=== PATIENT | female | born 1925 | race Caucasian/White ===

== ENCOUNTER 2017-02-15 02:29 | Emergency (ER) | payer MEDICARE, OTHER ==
[~2017-02-15] VITALS: Ht 147.3 cm; Wt 66.0 kg
[~2017-02-15 02:29] MED LIST: ACET50TAOT PO; ADV250INH INH; ALBU17IN INH; BUME1TA PO; CO Q100C PO; DILT120C PO; DRIS50002 PO; ELIQ2.5T PO; ELIQ5TAB PO; FOLI1TAB4 PO; KLOR1TAB77 PO; LIDO5TD TD; MAGN500T2 PO; MAGN64TASA PO; METO1TAB32 PO; METO25TAB PO; NATU400T PO; PERCOCET PO; POTA20TA PO; PRAV40TA2 PO; PRIL40CA PO; PROP225T PO; REST0.05 OU; SALI0.6523; SYMB16INH INH; VITMTA PO; [UNRECOGNIZED DRUG - CODE] OU; [UNRECOGNIZED DRUG - CODE] PO
[2017-02-15 06:48] LABS: BASO % 0.8 % (0.0-1.0); EOS # 0.2 K/mm3 (0.0-0.50); EOS % 3.8 % (0.0-3.0); LARGE UNSTAINED CELL # 0.2 K/mm3 (0.0-0.4); LARGE UNSTAINED CELL % 2.6 % (0.0-4.0); LYMPH # 2.2 K/mm3 (1.5-4.5); LYMPH % 32.1 % (24.0-44.0); MEAN CORPUSCULAR HGB CONC 33.2 g/dl (32.0-36.5); MEAN CORPUSCULAR VOLUME 99.3 fl (80.0-96.0); MONO # 0.5 K/mm3 (0.0-0.8); MONO % 7.8 % (0.0-5.0); NEUTROPHILS # 3.4 K/mm3 (1.8-7.7); NEUTROPHILS % 52.9 % (36.0-66.0); PLATELET COUNT, AUTOMATED 199 k/mm3 (150-450); RED CELL DISTRIBUTION WIDTH 12.8 % (11.5-14.5); WHITE BLOOD COUNT 6.4 K/mm3 (4.0-10.0)
[2017-02-15 07:20] LABS: ANION GAP 7 MEQ/L (8-16); BLOOD UREA NITROGEN 13 MG/DL (7-18); CALCIUM LEVEL 8.8 MG/DL (8.8-10.2); CARBON DIOXIDE LEVEL 29 MEQ/L (21-32); CHLORIDE LEVEL 104 MEQ/L (98-107); CREATININE FOR GFR 1.23 MG/DL (0.55-1.02); GLOMERULAR FILTRATION RATE 43.8 (>32); GLUCOSE, FASTING 94 MG/DL (83-110); POTASSIUM SERUM 4.7 MEQ/L (3.5-5.1); SODIUM LEVEL 140 MEQ/L (136-145); T UPTAKE 38 % (30-39)
[2017-02-15 08:26] LABS: ERYTHROCYTE SEDIMENTATION RATE 10 mm/hr (0-42)
[2017-02-15 09:12] VITALS: BP 132/64
[2017-04-18] MEDS ORDERED: PROP325C2 PO (11:28)
[2017-04-18] MEDS ORDERED: TOPR25TA PO (11:28)
[2017-04-18] MEDS ORDERED: CALC500T36 PO (11:28)
[2017-04-18] MEDS ORDERED: BETA5CR TOP (15:01)
[2017-04-18] MEDS ORDERED: PRIM50TA6 PO (15:01)
== END 2017-02-15 09:14 | disposition home or self-care (01) ==
LOC: EDBD 02:29 → M ED 02:29
DX: M48.00 Spinal stenosis, site unspecified (principal); M17.4 Other bilateral secondary osteoarthritis of knee; M81.0 Age-related osteoporosis without current pathological fracture; I10 Essential (primary) hypertension; I48.91 Unspecified atrial fibrillation; D64.9 Anemia, unspecified; Z79.01 Long term (current) use of anticoagulants; Z79.899 Other long term (current) drug therapy; Z88.2 Allergy status to sulfonamides; Z88.8 Allergy status to other drugs, medicaments and biological substances; Z91.013 Allergy to seafood